=== PATIENT | male | born 1980 ===

== ENCOUNTER 2017-01-21 18:01 | Emergency (ER) | payer SELFPAY ==
[2017-01-21 18:10] VITALS: BP 118/87; PULSE 62; BMI 23.6
[2017-01-21 18:13] VITALS: TEMP 98.4
--- NOTE | 2017-01-21 18:22 | ED PDOC ---
Arrival/HPI - General Chief Complaint: Eye Problem Time Seen by Provider: 01/21/17 18:16 Historian: Patient - History of Present Illness Narrative History of Present Illness (Text): 01/21/17 18:18 Patient reports sustaining head injury and sustaining a laceration to the left upper eyelid when playing basketball just prior to arrival. Otherwise: (-) loss of consciousness, (-) nausea, (-) vomiting, (-) severe headache, (-) other injury, (-) neck pain, (-) subjective neurologic deficit, (-) anticoagulants. Has no history of prior significant head injury. PMD none Past Medical History - Provider Review Nursing Documentation Reviewed: Yes - Tetanus Immunization Tetanus Immunization: Unknown - Cardiac Hx Cardiac Disorders: No - Pulmonary Hx Respiratory Disorders: No - Neurological Hx Neurological Disorder: No - HEENT Hx HEENT Disorder: No - Renal Hx Renal Disorder: No - Endocrine/Metabolic Hx Endocrine Disorders: No - Hematological/Oncological Hx Blood Disorders: No - Integumentary Hx Dermatological Disorder: No - Musculoskeletal/Rheumatological Hx Musculoskeletal Disorders: No - Gastrointestinal Hx Gastrointestinal Disorders: No - Genitourinary/Gynecological Hx Genitourinary Disorders: No - Psychiatric Hx Psychophysiologic Disorder: No Hx Substance Use: No - Anesthesia Hx Anesthesia: No Family/Social History - Physician Review Nursing Documentation Reviewed: Yes Family/Social History: No Known Family HX Smoking Status: Never Smoked Hx Alcohol Use: Yes Frequency of alcohol use: Socially Hx Substance Use: No Allergies/Home Meds Allergies/Adverse Reactions: Allergies No Known Allergies Allergy (Verified 01/21/17 18:10) Home Medications: Home Meds Medication Instructions Recorded Confirmed No Known Home Med 01/21/17 01/21/17 Review of Systems - Review of Systems Constitutional: Normal. absent: Fatigue, Weight Change, Fevers Respiratory: Normal. absent: SOB, Cough, Sputum Cardiovascular: Normal. absent: Chest Pain, Palpitations, Edema Musculoskeletal: Normal. absent: Arthralgias, Back Pain, Neck Pain Skin: Normal, Laceration. absent: Rash, Pruritis, Skin Lesions Neurological: Normal. absent: Headache, Dizziness, Focal Weakness Physical Exam - Physical Exam Narrative Physical Exam (Text): 01/21/17 18:19 GENERAL APPEARANCE: Patient is awake, alert, oriented x 3, in no acute distress. SKIN: Warm, dry; (-) cyanosis, (+) 1 cm laceration to the L upper eyelid. HEAD: (-) swelling and tenderness, with no palpable bony defect. EYES: (-) hyphema, (-) conjunctival pallor, (-) scleral icterus, (-) nystagmus. ENMT: Mucous membranes moist. (-) Verma's sign. TMs: (-) blood. Nose: (- ) tenderness, (-) rhinorrhea. No oral trauma. Pharynx clear. Airway patent: (-) stridor. Full ROM of mandible without pain. NECK: (-) tenderness, (-) stiffness, (-) lymphadenopathy. CHEST AND RESPIRATORY: (-) chest wall tenderness. Lungs: (-) rales, (-) rhonchi, (-) wheezes; breath sounds equal bilaterally. HEART AND CARDIOVASCULAR: (-) irregularity; (-) murmur, (-) gallop. ABDOMEN AND GI: Soft; (-) tenderness. BACK: (-) tenderness. EXTREMITIES: (-) deformity, (-) tenderness, (-) limitation of motion NEURO AND PSYCH: GCS=15. Mental status as above. 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 EOMI. (-) facial asymmetry. Tongue and uvula midline. Strength 5/5 in all extremities. No gross sensory deficits. DTRs symmetric. Vital Signs Temp Pulse Resp BP Pulse Ox 01/21/17 18:49 18 98 01/21/17 18:10 98.4 F 62 16 118/87 97 01/21/17 18:09 98.1 F 62 16 118/87 97 Medical Decision Making ED Course and Treatment: 01/21/17 18:20 36 yo M reports sustaining head injury and sustaining a laceration to the left upper eyelid when playing basketball just prior to arrival. Plan : - Tdap IM - Dermabond The wound is left upper eyelid. The wound was copiously irrigated with normal saline. The wound was prepped and draped in the normal sterile fashion. The wound was explored for foreign bodies and none were found. The edges were reapproximated using Dermabond. Bleeding was well controlled and the patient tolerated the procedure well. Otherwise patient instructed to follow up with primary care physician in 1-2 days without fail. Return to the emergency room at any time for any new or worsening symptoms. Patient states he fully agrees with and understands discharge instructions. States that he agrees with the plan and disposition. Verbalized and repeated discharge instructions and plan. I have given the patient opportunity to ask any additional questions. - Medication Orders Current Medication Orders: Discontinued Medications Tetanus/Reduced Diphtheria/Acell Pertussis (Boostrix Vaccine Inj) 0.5 ml IM .ONCE ONE Stop: 01/21/17 18:28 Last Admin: 01/21/17 18:47 Dose: 0.5 ml - PA / HOSPITAL SCIENTIST / Resident Statement MD/DO has reviewed & agrees with the documentation as recorded. Disposition/Present on Arrival - Present on Arrival Any Indicators Present on Arrival: No History of DVT/PE: No History of Uncontrolled Diabetes: No Urinary Catheter: No History of Decub. Ulcer: No History Surgical Site Infection Following: None - Disposition Have Diagnosis and Disposition been Completed?: Yes Diagnosis: Head injury, Facial laceration Disposition: HOME/ ROUTINE Disposition Time: 18:22 Patient Plan: Discharge Condition: STABLE Discharge Instructions (ExitCare): Laceration (ED), Head Injury (ED), Skin Adhesive Care (ED) Print Language: SINHALA Additional Instructions: Thank you for letting us take care of you today. You were treated for head injury, facial laceration. The emergency medical care you received today was directed at your acute symptoms. Return to the Emergency Department if your symptoms worsen, do not improve, or if you have any other problems. Please contact your doctor in 2 days for re-evaluation and follow up / or call one of the physicians/clinics you have been referred to that are listed on the Patient Visit Information form that is included in your discharge packet. Bring any paperwork you were given at discharge with you along with any medications you are taking to your follow up visit. Our treatment cannot replace ongoing medical care by a primary care provider (PCP) outside of the emergency department. Thank you for allowing the [facility] team to be part of your care today. Referrals: [facility] [place] - Follow up with primary Aurelio Rose MD [Staff Provider] - Follow up with primary Forms: [employer] (Armenian), WORK NOTE
[2017-01-21] MEDS ORDERED: TDAP Vaccine 0.5 mL Syr IM ONE (18:27)
[2017-01-21 18:50] VITALS: RESP 18; O2SAT 98
== END 2017-01-21 19:43 | disposition home or self-care (01) ==
LOC: ED 18:01
DX: S01.112A Laceration without foreign body of left eyelid and periocular area, initial encounter (principal); X58.XXXA Exposure to other specified factors, initial encounter; Y93.67 Activity, basketball; Z23 Encounter for immunization